=== PATIENT | male | born 1940 | race Caucasian/White ===

== ENCOUNTER 2024-01-26 09:00 | Outpatient (RCR) | payer OTHER ==
[~2024-01-26 09:00] MED LIST: Z.0.BENAZEPRIL HCL20 PO; Z.0.GEMFIBROZIL600 M PO
== END 2024-01-29 ==
LOC: OT 09:00
PROVIDERS: ATTEND Specialist
DX: M75.101 Unspecified rotator cuff tear or rupture of right shoulder, not specified as traumatic (principal); M25.511 Pain in right shoulder; M25.611 Stiffness of right shoulder, not elsewhere classified; R53.1 Weakness